=== PATIENT | female | born 1960 | race Caucasian/White ===

== ENCOUNTER 2020-10-02 07:59 | Day surgery (SDC) | payer BC ==
[2020-09-30 16:25] VITALS: BMI 30.9
[~2020-10-02 07:59] MED LIST: CLINDAMYCIN 900 MG in DEXTROSE 5% IN WATER 50 ML IVPB PRN; DEXAMETHASONE SOD PHOSPHATE 4 MG/ML 1 ML VIAL IV PRN; HYDROmorphone 0.5 MG/0.5 ML SYRINGE IVP PRN; MIDAZOLAM 2 MG/2 ML VIAL IV PRN; ONDANSETRON 4 MG/2 ML VIAL IVP PRN; SCOPOLAMINE 1.5MG/72HR PATCH TRANSDERM PRN
[2020-10-02] MEDS: LACTATED RINGERS 1,000 ML IV SCH ×2 (08:21→09:02)
[2020-10-02] MEDS ORDERED: LIDOCAINE 1% (10MG/ML) FOR IV START INTRADERMA ONE (08:22)
[2020-10-02] MEDS ORDERED: fentaNYL (PF) 50 MCG/ML 2 ML AMP IVP ONE (08:44)
[2020-10-02] MEDS ORDERED: fentaNYL (PF) 50 MCG/ML 2 ML AMP ONE (09:03)
[2020-10-02] MEDS ORDERED: GLYCOPYRROLATE 0.2 MG/ML 2 ML VIAL ONE (09:03)
[2020-10-02] MEDS ORDERED: LIDOCAINE 1% INJ 10MG/ML (20 ML MDV) ONE (09:03)
[2020-10-02] MEDS ORDERED: MIDAZOLAM 2 MG/2 ML VIAL ONE (09:03)
[2020-10-02] MEDS ORDERED: KETOROLAC 15 MG/ML 1 ML VIAL ONE (09:03)
[2020-10-02] MEDS ORDERED: PROPOFOL 10 MG/ML 20 ML VIAL IV ONE (09:03)
[2020-10-02 09:05] VITALS: RESP 16
[2020-10-02] MEDS ORDERED: LACTATED RINGERS 1,000 ML IV ONE (10:24)
--- NOTE | 2020-10-02 11:11 | FL ---
EXAMINATION TYPE: FL guidance operating room, XR foot limited LT DATE OF EXAM: 10/02/2020 CLINICAL HISTORY: Right foot pain. TECHNIQUE: Fluoroscopy. Right foot limited x-ray. COMPARISON: None. FINDINGS: Fluoroscopic guidance was provided during open reduction and internal fixation procedure p erformed by Dr. Crystal. A total of 36 seconds of fluoroscopic time was utilized during the procedure and 5 spot images was acquired. There is a fixating plate medially at the talonavicular joint. There is additional surgical change an terior calcaneal cuboid. Please refer to procedure note for further details if necessary. IMPRESSION: As Above.
[2020-10-02 11:28] VITALS: TEMP 96.9
--- NOTE | 2020-10-02 11:55 | P.ANPRN ---
Procedure Note - Anesthesia - Nerve Block Performed Right Popliteal Single Time Out Performed: Yes (843) Date of Procedure: 10/02/20 Procedure Start Time: 08:44 Procedure Stop Time: 08:48 Location of Patient: PreOp Indication: Acute Post-Operative Pain, Requested by Surgeon Specifically requested for management of pain by DrJen: Kirby Crystal Sedation Type: Sedate with meaningful contact maintained Preparation: Sterile Prep Position: Left Lateral Catheter: None Needle Types: Pajunk Needle Gauge: 21 Ultrasound used to visualize needle placement: Yes Ultrasound used to observe medication spread: Yes Injectate: 0.5% Ropivacaine (see comment for volume) (15cc) Blood Aspirated: No Pain Paresthesia on Injection Noted: No Resistance on Injection: Normal Image Stored and Saved: Yes Events: Uneventful and Well Tolerated Right Adductor Canal Single Time Out Performed: Yes (843) Date of Procedure: 10/02/20 Procedure Start Time: 08:49 Procedure Stop Time: 08:53 Location of Patient: PreOp Indication: Acute Post-Operative Pain, Requested by Surgeon Sedation Type: Sedate with meaningful contact maintained Preparation: Sterile Prep Position: Supine Catheter: None Needle Types: Pajunk Needle Gauge: 21 Ultrasound used to visualize needle placement: Yes Ultrasound used to observe medication spread: Yes Injectate: 0.5% Ropivacaine (see comment for volume) (15cc) Blood Aspirated: No Pain Paresthesia on Injection Noted: No Resistance on Injection: Normal Image Stored and Saved: Yes Events: Uneventful and Well Tolerated
[2020-10-02 12:19] VITALS: BP 143/65; PULSE 70
--- NOTE | 2020-10-06 20:54 | OP ---
OPERATIVE REPORT DATE OF SURGERY: 10/02/2020 PREOPERATIVE DIAGNOSES: 1. Right foot deformity. 2. Failed bone graft, right foot. POSTOPERATIVE DIAGNOSES: 1. Right foot deformity. 2. Failed bone graft, right foot. PROCEDURE: 1. Talonavicular arthrodesis, right foot. 2. Revision Cherry calcaneal osteotomy, right foot. SURGEON: Kirby Crystal DPM. ANESTHESIA: General with preoperative nerve block. HEMOSTASIS: Right mid calf tourniquet at 250 mmHg. ESTIMATED BLOOD LOSS: Minimal. MATERIALS: One Novastep talonavicular arthrodesis plate and one Synthes TiPEEK Cherry implant. INJECTABLES: None. SPECIMENS: None. COMPLICATIONS: None. OPERATIVE REPORT: Prior to the patient being brought to the operating room, Anesthesia administered a nerve block to the right lower extremity under ultrasonic guidance and mild sedation. Then the patient was brought into the operating room, placed on the table in supine position. Timeout was taken to confirm correct patient identifiers, correct site of surgery and correct procedure. When everybody in the room was in agreement, the patient was placed under general anesthetic. A well-padded tourniquet was placed on the right mid calf, keeping it 3 to 4 inches distal to the fibular neck. The right leg was then prepped and draped in the usual manner. The foot was exsanguinated and tourniquet inflated to 250 mmHg. Attention was directed over the lateral aspect of the right foot, where a previous scar from her initial Cherry surgery was followed for the incision. It was deepened down to the subcutaneous tissue, careful to identify, avoid and retract any neurovascular structures and cauterize any bleeding vessels. Blunt dissection was continued down to the level of the peroneal tendons. Incision was made superior to the peroneal tendons and then they were freed from the anterior process of the calcaneus with a periosteal flap to protect the tendons. Exposing the anterior process, the tendons were retracted carefully. There was a staple in place for the previous bone graft that was removed The area where the bone graft was located had soft and disorganized bone. This was all debrided with a combination of osteotomes and a rongeur until the bone graft had been fully removed. Soft tissue adhesions were released medially to allow the osteotomy to open again. Sizing determined that an 8 mm graft would be most appropriate. DBX bone putty was inserted into the hole of the graft as well as on the conjoining bony surfaces. That was impacted into place at proper depth. Fluoroscopy confirmed the positioning both on AP and lateral views. There was a significant amount of tension holding the graft in place. Therefore fixation was not utilized. The wound was then irrigated thoroughly with antibiotic saline. Deep closure was done with 2-0 Vicryl, subcutaneous closure done with 4-0 Monocryl and skin closure done with 3-0 Stratafix in a running subcuticular manner. Attention was then directed to the medial aspect of the foot, where an incision was made over the talonavicular joint on the medial side. It was deepened down to the subcutaneous tissue, careful to identify, avoid and retract any neurovascular structures and cauterize any bleeding vessels. Dissection was continued down to the level of the talonavicular joint. The capsule was incised. Subperiosteal dissection was performed to expose the entirety of the joint. Utilizing joint prep instrumentation, all the cartilaginous and subchondral bone was sharply removed, maintaining the contour of the joint. All the material that was removed was taken from the surgical field. There was bleeding bone noted where the bone was removed. The areas were fenestrated with a 2 mm K-wire. The wound was irrigated thoroughly with antibiotic saline. A guidewire was placed through the navicular for temporary fixation prior to crossing the arthrodesis site. It was packed with 5 mL of Vivigen bone putty. Once that was in place, a guidewire was placed across the arthrodesis site, holding the foot in a corrected position which involved plantar flexing it in the midfoot and internally rotating it to correct the transverse plane deformity. Once that was in position, the position of the foot was checked under fluoroscopy. There was less talar declination and better alignment of the medial column of the foot with the talus. Once positioning was satisfactory, a Novastep talonavicular arthrodesis plate was placed over the arthrodesis site under fluoroscopy. The positioning was checked and confirmed. Then it was temporarily fixated. Two locking screws were placed into the talus and then the distal screws were a combination compression/locking slot. When the first screw was placed into the navicular and engaged the plate, fluid extruded from the arthrodesis site, indicating good compression. This occurred at both of the holes, and once compression was completed the screw threaded and it locked into the plate. Fluoroscopic imaging showed proper positioning of the screws at both the talus and the navicular, and no evidence of joint space noted. The wound was then irrigated with antibiotic saline. Deep closure was done with 0 Vicryl. Subcutaneous closure was done with 4-0 Monocryl. Skin closure was done with 3-0 Stratafix in a running subcuticular manner. Dermaglue was applied over both incisions, then allowed to dry and then covered over with Steri-Strips. Nonadherent dressing over the incision and then wrapped in a dry sterile dressing. The tourniquet was released and capillary refill returned to all digits on the right foot. The patient was placed in a well- molded, well-padded plaster posterior mold sugar-tong splint that was held in neutral position of the foot and ankle while drying. Then anesthesia was reversed and she was taken to Recovery with vital signs stable. [id number] / IJN: [id number] / MTDD
== END 2020-10-02 12:39 | disposition home or self-care (01) ==
LOC: OR 07:59
PROVIDERS: ATTEND Podiatrist
DX: M21.6X1 Other acquired deformities of right foot (principal); T86.831 Bone graft failure; T84.84XA Pain due to internal orthopedic prosthetic devices, implants and grafts, initial encounter; F32.9 Major depressive disorder, single episode, unspecified; Z88.0 Allergy status to penicillin; Z88.2 Allergy status to sulfonamides; Z98.890 Other specified postprocedural states; Z82.49 Family history of ischemic heart disease and other diseases of the circulatory system; Z83.3 Family history of diabetes mellitus; Z87.891 Personal history of nicotine dependence
CPT/HCPCS: 28740; 28300; 64450; 64447; 76942; 73620; C1713 ×2; J2250; J1100; J2405; J2001; J3010; J1885; J2704